=== PATIENT | female | born 1995 ===

== ENCOUNTER 2019-02-01 16:59 | Emergency (ER) ==
[2019-02-01] MEDS ORDERED: ACETAMINOPHEN 325 MG TABLET PO ONE (17:56)
== END 2019-02-01 18:50 | disposition left against medical advice (07) ==
LOC: ER 16:59
DX: Z53.21 Procedure and treatment not carried out due to patient leaving prior to being seen by health care provider (principal); M54.9 Dorsalgia, unspecified; R11.0 Nausea